=== PATIENT | female | born 1995 | race Caucasian/White ===

== ENCOUNTER 2018-12-25 11:23 | Inpatient (IN) ==
[2018-12-25 11:42] LABS: Hematocrit 39.1 % (37.0-47.0); Hemoglobin 12.9 gm/dL (12.5-16.0); Mean Cell Volume 82.3 fl (78-100); Mean Corpuscular Hemoglobin 27.2 pg (27-31); Mean Platelet Volume 9.8 fl (8-12.5); Neutrophil # 6.1 K/mm3 (1.3-6.0); Neutrophil % 61.7 % (42-75.0); Platelet Count 284 K/mm3 (150-450); Red Blood Count 4.75 M/mm3 (4.2-5.4); Red Cell Distribution Width 13.6 % (11.5-14.0)
[2018-12-25 11:55] LABS: Random Urine Total Protein 14.6 mg/dL (0-12)
[2018-12-25 11:56] LABS: Albumin * 2.8 gm/dl (3.4-5.0); Anion Gap 14.1 mmol/L (6.8-13.8); BUN/Creatinine Ratio 12.5 (9.0-21.6); Bilirubin, Total 0.4 mg/dL (0.0-1.1); Ca. Corrected For Albumin 9.8 mg/dL (8.4-10.2); Calcium * 9.2 mg/dL (7.9-10.9); Carbon Dioxide 24.6 mmol/L (24-32.6); Potassium 3.7 mmol/L (3.4-4.6); Total Protein 7.6 gm/dL (6.2-8.2)
[2018-12-25] MEDS ORDERED: RINGER'S SOLUTION,LACTATED 1,000 ML IV PRN (13:14)
[2018-12-25] MEDS ORDERED: RINGER'S SOLUTION,LACTATED 1,000 ML IV ONE (13:14)
[2018-12-25] MEDS ORDERED: OXYTOCIN/DEXTROSE 5%-WATER 30 UNITS/500 ML BAG IV ONE ×2 (13:14→20:57)
--- NOTE | 2018-12-25 13:17 | HP ---
Chief Complaint - Chief Complaint Date of Service: 12/25/18 Time of Service: 13:17 Chief Complaint: elevated BPs, contractions History of Present Illness: 23 yo at 38 2/7 weeks presents to L&D from office for GHTN and early labor. Patient complains of frequent contractions. Denies TREVINO, visual changes, or epigastric pain. This complicated by anemia, GHTN, and depression. Rh positive Rubella immune GBS negative Medical History (Updated 12/25/18 @ 13:17 by Brendan Forrest DO) Asthma [place] teeth extracted Onset Date: ~2011 Gestational hypertension Onset Date: ~2014 Surgical History: Surgical History (Updated 06/27/18 @ 18:42 by Bud Sutherland DO) History of tonsillectomy and adenoidectomy Onset Date: Unknown as a child History of tympanostomy tube placement Onset Date: Unknown as a child Family History: Family History (Updated 05/02/18 @ 09:35 by Kate Dorsey RN) Father Diabetes Mother Unknown family medical history Grandmother Diabetes maternal Other Alive and well Social History: Preferred Language Guyanese Smoking Status Never smoker (Last Updated 12/25/18 @ 11:21 by Brendan Forrest DO) No Social History Section defined Review Of Systems (GEN) - Review of Systems Generalized/Overall Review: Present: No Symptoms Reported EENTM: Present: No Symptoms Reported Respiratory: Present: No Symptoms Reported Cardiac: Present: No Symptoms Reported Abdominal: Present: Other - contractions - mild Genitourinary: Present: No Symptoms Reported Musculoskeletal: Present: No Symptoms Reported Neurological: Present: No Symptoms Reported Skin: Present: No Symptoms Reported Endocrine: Present: No Symptoms Reported Immunizations: IMMUNIZATION HX Immunizations Up to Date Yes History of Influenza Vaccine No Hx Pneumococcal Vaccination No Allergies/Adverse Reactions: Allergies Allergy/AdvReac Type Severity Reaction Status Date / Time ibuprofen Allergy swelling Verified 12/25/18 10:53 of eyes Home Medications: HOME MEDICATIONS vitamin,calcium,hbsoqoxk-nqse-cepni acid tablet 1 tab PO DAILY 05/02/18 [Last Taken 12/25/18 0700] ascorbic acid (vitamin C) 500 mg capsule 500 mg PO DAILY cap 07/05/18 [Last Taken 12/25/18 0700] cholecalciferol (vitamin D3) 1,000 unit capsule 1,000 unit PO DAILY 07/05/18 [Last Taken 12/25/18 0700] vitamin B complex tablet 1 tab PO DAILY 07/05/18 [Last Taken 12/25/18 07:00] aspirin 81 mg tablet,delayed release 81 mg PO DAILY 10/11/18 [Last Taken 12/25/18 0700] Exam - Exam Vital Signs: Vital Signs - Last Taken Temp 36.5 C 12/25/18 11:33 Pulse 89 12/25/18 11:33 Resp 20 12/25/18 11:33 BP 161/91 H 12/25/18 11:33 Pulse Ox 98 12/25/18 11:33 Repeat BPs 140-150's/80-90's Constitutional: Present: Alert, Oriented x3, Cooperative, No distress ENT Exam: Present: hearing grossly normal Respiratory: Present: lungs clear, no respiratory distress Cardiovascular/Chest: Present: normal peripheral pulses, regular rate, rhythm Abdomen: Present: soft, nontender, other - gravid /Rectal: Present: Other - cervix 4/60/-2 Extremity: Present: no pedal edema, no calf tenderness Skin Exam: Present: normal color, warm/dry, no cyanosis Neurologic: Present: alert, normal mood/affect, oriented x 3, other - DTR 2/4, no clonus Appearance: Present: appropriate appearance, appropriate insight Eye contact: Present: cooperative, good eye contact Thoughts: Present: normal thought pattern, no apparent hallucination Diagnostic Studies: Abnormal Lab Results 12/25/18 12/25/18 12/25/18 Range/Units 11:37 11:37 11:37 Immature Gran # (Auto) 0.04 H (0.000-0.0310) K/mm3 Neutrophils # 6.1 H (1.3-6.0) K/mm3 Anion Gap 14.1 H (6.8-13.8) mmol/L Albumin 2.8 L (3.4-5.0) gm/dl Ur Random Creatinine 57.2 L (60-200) mg/dL U Random Total Protein 14.6 H (0-12) mg/dL U [place] Prot/Creat Ratio 255 H (0-199) mg/gm Laboratory Results WBC 10.0 K/mm3 (4.0-10.5) 12/25/18 11:37 RBC 4.75 M/mm3 (4.2-5.4) 12/25/18 11:37 Hgb 12.9 gm/dL (12.5-16.0) 12/25/18 11:37 Hct 39.1 % (37.0-47.0) 12/25/18 11:37 MCV 82.3 fl (78-100) 12/25/18 11:37 MCH 27.2 pg (27-31) 12/25/18 11:37 MCHC 33.0 g/dl (32-36) 12/25/18 11:37 RDW 13.6 % (11.5-14.0) 12/25/18 11:37 Plt Count 284 K/mm3 (150-450) 12/25/18 11:37 MPV 9.8 fl (8-12.5) 12/25/18 11:37 Immature Gran % (Auto) 0.40 % (0.001-0.429) 12/25/18 11:37 Immature Gran # (Auto) 0.04 K/mm3 (0.000-0.0310) H 12/25/18 11:37 61.7 % (42-75.0) 12/25/18 11:37 26.6 % (20-51) 12/25/18 11:37 8.4 % (0.0-9) 12/25/18 11:37 2.7 % (0.0-3.0) 12/25/18 11:37 0.2 % (0.0-1.0) 12/25/18 11:37 Nucleated RBC % 0.0 k/mm3 (0-1) 12/25/18 11:37 6.1 K/mm3 (1.3-6.0) H 12/25/18 11:37 2.65 k/mm3 (1.5-3.5) 12/25/18 11:37 0.8 k/mm3 (0.0-1.0) 12/25/18 11:37 0.3 k/mm3 (0.0-0.7) 12/25/18 11:37 Absolute Basophils 0.0 k/mm3 (0.0-0.1) 12/25/18 11:37 Sodium 137 mmol/L (132-142) 12/25/18 11:37 137 mmol/L (130-142) 12/25/18 11:37 Potassium 3.7 mmol/L (3.4-4.6) 12/25/18 11:37 Chloride 102 mmol/L (97-106) 12/25/18 11:37 Carbon Dioxide 24.6 mmol/L (24-32.6) 12/25/18 11:37 14.1 mmol/L (6.8-13.8) H 12/25/18 11:37 BUN 8 mg/dL (3-23) 12/25/18 11:37 0.64 mg/dL (0.4-1.4) 12/25/18 11:37 Est GFR (Non-Af Amer) 120 mL/min (60-130) 12/25/18 11:37 12.5 (9.0-21.6) 12/25/18 11:37 77 mg/dL (70-110) 12/25/18 11:37 Calcium 9.2 mg/dL (7.9-10.9) 12/25/18 11:37 Calcium Adj for Albumin 9.8 mg/dL (8.4-10.2) 12/25/18 11:37 0.4 mg/dL (0.0-1.1) 12/25/18 11:37 AST 29 U/L (0-48) 12/25/18 11:37 ALT 43 U/L (19-67) 12/25/18 11:37 144 U/L (50-170) 12/25/18 11:37 7.6 gm/dL (6.2-8.2) 12/25/18 11:37 2.8 gm/dl (3.4-5.0) L 12/25/18 11:37 Ur Random Creatinine 57.2 mg/dL (60-200) L 12/25/18 11:37 U Random Total Protein 14.6 mg/dL (0-12) H 12/25/18 11:37 U [place] Prot/Creat Ratio 255 mg/gm (0-199) H 12/25/18 11:37 Assessment/Plan - Assessment/Plan (1) Gestational hypertension Assessment: Admit for management of labor. Pitocin and Epidural PRN. Problem: Acute Qualifiers: Trimester: third trimester Qualified Code(s): O13.3 - Gestational [-induced] hypertension without significant proteinuria, third trimester (2) Irregular contractions Problem: Acute (3) Depression Problem: Chronic Qualifiers: Depression Type: unspecified Qualified Code(s): F32.9 - Major depressive disorder, single episode, unspecified
--- NOTE | 2018-12-25 13:20 | PN ---
Progess Note - Interim Date: 12/25/18 Time: 13:17 Narrative: 12/25/18 13:17 Patient rating contractions as mild to moderate Blood pressures 809846g/80-90s heart tones reassuring Contractions every 3-4 minutes Cervix 4-5/60/-2, AROM-clear Impression: 38 2/7 week intrauterine in early labor with gestational hypertension Plan: Admit for management of labor/gestational hypertension.
[2018-12-25] MEDS ORDERED: NALOXONE HCL 1 MG/1 ML SYRG IV PRN (16:05)
[2018-12-25] MEDS ORDERED: BUPIVACAINE HCL/0.9 % NACL/PF 250 ML EP PRN (16:05)
[2018-12-25] MEDS ORDERED: ONDANSETRON HCL/PF 2 MG/ML VIAL IV PRN (16:05)
[2018-12-25] MEDS ORDERED: BUPIVACAINE HCL/PF 30 ML VIAL EP SCH (16:15)
--- NOTE | 2018-12-25 16:38 | ANES ---
Anesthesia Pre Procedure Eval Vitals/Labs: Last Vital Signs Temp 36.5 C 12/25/18 11:33 Pulse 89 12/25/18 11:33 Resp 20 12/25/18 11:33 BP 161/91 H 12/25/18 11:33 Pulse Ox 98 12/25/18 11:33 HOME MEDICATIONS vitamin,calcium,bpeqlbje-aajy-wbfza acid tablet 1 tab PO DAILY 05/02/18 [Last Taken 12/25/18 0700] ascorbic acid (vitamin C) 500 mg capsule 500 mg PO DAILY cap 07/05/18 [Last Taken 12/25/18 07] cholecalciferol (vitamin D3) 1,000 unit capsule 1,000 unit PO DAILY 07/05/18 [[place] st Taken 12/25/18699] vitamin B complex tablet 1 tab PO DAILY 07/05/18 [Last Taken 12/25/18 07:00] aspirin 81 mg tablet,delayed release 81 mg PO DAILY 10/11/18 [Last Taken 12/25/18 07] Allergies/Adverse Reactions: Allergies Allergy/AdvReac Type Severity Reaction Status Date / Time ibuprofen Allergy swelling Verified 12/25/18 10:53 of eyes - Planned Procedure Planned Procedure: Labor epidural Medication List Reviewed:: Yes Allergies Verified: Yes Medical History (Updated 12/25/18 @ 13:17 by Brendan Forrest DO) Asthma [place] teeth extracted Onset Date: ~2011 Gestational hypertension Onset Date: ~2014 Surgical History (Updated 06/27/18 @ 18:42 by Bud Sutherland DO) History of tonsillectomy and adenoidectomy Onset Date: Unknown as a child History of tympanostomy tube placement Onset Date: Unknown as a child Family History (Updated 05/02/18 @ 09:35 by Kate Dorsey RN) Father Diabetes Mother Unknown family medical history Grandmother Diabetes maternal Other Alive and well - Anesthesia Assessment and Plan ASA Class: PS, II Anesthesia Type Plan: Epidural
[2018-12-25] MEDS ORDERED: LIDOCAINE HCL/EPINEPHRINE 20 ML VIAL ONE (16:40)
--- NOTE | 2018-12-25 17:05 | ANES ---
Anesthesia Procedure Note Procedure Note: ANESTHESIA PROCEDURE NOTE Date of Procedure: 12/25/2018. Time of procedure: 1640. Performed by: Richar Ornelas CRNA Glass Silverer: None. Preprocedure diagnosis: Active labor. Post procedure diagnosis: Same. Procedure: Insertion of labor epidural. Indications: The patient is a 23 -year-old female in active labor requesting labor epidural for pain management. Findings: See below. Details of the procedure: The patient was placed in a sitting position. DuraPrep as well as Betadine swabs X3 was applied to the patient's back. Patient was then draped in a sterile fashion. Lidocaine 1% was infiltrated to the skin and subcutaneous tissues at the level of the L3-4 interspace. The epidural space was identified using a 18-gauge Tuohy needle with [id number] technique. Epidural catheter was inserted to a depth of 15 centimeters at skin. Negative test dose was elicited using 3 mL of 1.5% preservative-free lidocaine plus epinephrine 1 200,000. The epidural catheter was then taped and secured in place. A loading dose of 8 mL of 0.25% preservative-free bupivacaine was administered to the epidural catheter after negative aspiration for blood and CSF. EBL: Minimal. Fluids: N/A. Specimen: N/A. Post procedure condition: The patient tolerated the procedure well. No complications were noted. Thank you for this consultation. Richar Ornelas CRNA
--- NOTE | 2018-12-25 17:09 | ANES ---
Post Anesthesia Assessment - Vital Signs Vitals: Last Vital Signs Temp 36.7 C 12/25/18 17:07 Pulse 90 12/25/18 17:07 Resp 16 12/25/18 17:07 BP 119/65 12/25/18 17:07 Pulse Ox 97 12/25/18 17:07 Airway Patency: Normal - Mental Status Level Of Consciousness: Awake - N/V Assessment Nausea/Vomiting Presence: None Dehydration:: No
[2018-12-25 18:32] LABS: Cocaine Ur Negative (NEGATIVE); Urine Barbiturate Negative (NEGATIVE); Urine Benzodiazepines Negative (NEGATIVE); Urine Opiates Negative (NEGATIVE); Urine PCP Negative (NEGATIVE); Urine THC Negative (NEGATIVE)
[2018-12-25] MEDS ORDERED: oxyCODONE HCL/ACETAMINOPHEN 1 TAB TABLET PO PRN ×2 (20:57)
[2018-12-25] MEDS ORDERED: ACETAMINOPHEN 325 MG TABLET PO PRN (20:57)
[2018-12-25] MEDS ORDERED: BISACODYL 10 MG SUPP.RECT RC PRN (20:57)
[2018-12-25] MEDS ORDERED: SENNOSIDES 8.6 MG TABLET PO PRN (20:57)
[2018-12-25] MEDS ORDERED: HYDROCORTISONE 30 APPL TUBE TP PRN (20:57)
[2018-12-25] MEDS ORDERED: GLYCERIN/WITCH HAZEL LEAF 40 APPL BOX TP PRN (20:57)
[2018-12-25] MEDS ORDERED: BENZOCAINE/MENTHOL 81 SPRAY CAN TP PRN (20:57)
--- NOTE | 2018-12-25 20:59 | OR ---
Operative Report - Dictated Report Narrative: Spontaneous vaginal delivery of vigorously crying viable female at 2039 on 12/25/2018 with Apgars 9 and 9, weighing 3028 g in OP presentation with meconium-stained fluid. Cord clamping delayed approximately 1 minute Placenta delivered complete, intact, with three vessel cord Estimated blood loss: less than 50 ml Anesthesia: epidural Lacerations: None History for MU Definition: * The number of deliveries resulting in a live the patient experienced prior to current hospitalization * The previous delivery of live twins or any live multiple gestation is considered one live event. *If primagravida or nulliparous is documented select zero for the number of previous live births. Live Events: 1
[2018-12-25] MEDS: DOCUSATE SODIUM 100 MG CAPSULE PO SCH (22:34)
[2018-12-26] MEDS: PRENATAL VITS96/IRON FUM/FOLIC 1 TAB TABLET PO SCH (09:14)
[2018-12-26] MEDS: DOCUSATE SODIUM 100 MG CAPSULE PO SCH ×2 (09:14→21:25)
--- NOTE | 2018-12-26 12:34 | PN ---
Subjective - Date and Time Seen Date: 12/26/18 Time: 12:33 Objective - Vitals Vitals: Last Vital Signs Temp 36.1 C 12/26/18 07:00 Pulse 75 12/26/18 07:00 Resp 16 12/26/18 07:00 BP 133/74 12/26/18 07:00 Pulse Ox 97 12/26/18 07:00 Patient denies complaints. Lochia wnl Abdomen - soft, nontender Uterus - firm, at umbilicus - 1 No calf tenderness Impression: day #1 - s/p spontaneous vaginal delivery. Plan: Continue routine care Cauti Physician Documentation - Urinary Catheter Management Urethral (Najera) Date of Insertion: 12/25/18 Time of Insertion: 17:30 Date of Removal: 12/25/18 Time of Removal: 20:15 Assessment/Plan - Problems/Diagnosis (1) Gestational hypertension Problem: Acute Qualifiers: Trimester: third trimester Qualified Code(s): O13.3 - Gestational [-induced] hypertension without significant proteinuria, third trimester (2) Irregular contractions Problem: Acute (3) Depression Problem: Chronic Qualifiers: Depression Type: unspecified Qualified Code(s): F32.9 - Major depressive disorder, single episode, unspecified
[2018-12-26] MEDS: ACETAMINOPHEN 500 MG TABLET PO PRN ×2 (12:45→21:17)
[2018-12-26] MEDS ORDERED: CALCIUM CARBONATE 500 MG TAB.CHEW PO PRN (22:29)
[2018-12-27 07:48] VITALS: BP 141/79
[2018-12-27] MEDS: DOCUSATE SODIUM 100 MG CAPSULE PO SCH (08:55)
[2018-12-27] MEDS: PRENATAL VITS96/IRON FUM/FOLIC 1 TAB TABLET PO SCH (08:56)
--- NOTE | 2018-12-27 09:05 | PN ---
Subjective - Date and Time Seen Date: 12/27/18 Time: 09:04 Objective - Vitals Vitals: Last Vital Signs Temp 36.4 C 12/27/18 07:44 Pulse 63 12/27/18 07:44 Resp 16 12/27/18 07:44 BP 141/79 H 12/27/18 07:44 Pulse Ox 97 12/27/18 07:44 Patient denies complaints. Lochia wnl Abdomen - soft, nontender Uterus - firm, at umbilicus - 2 No calf tenderness Impression: day #2 - s/p spontaneous vaginal delivery. Mildly elevated blood pressures over the past several hours without symptoms of preeclampsia Plan: Routine discharge instructions. Preeclampsia precautions. Follow-up in the office in 1 week for blood pressure check. Cauti Physician Documentation - Urinary Catheter Management Urethral (Najera) Date of Insertion: 12/25/18 Time of Insertion: 17:30 Date of Removal: 12/25/18 Time of Removal: 20:15 Assessment/Plan - Problems/Diagnosis (1) Gestational hypertension Problem: Acute Qualifiers: Trimester: third trimester Qualified Code(s): O13.3 - Gestational [-induced] hypertension without significant proteinuria, third trimester (2) Irregular contractions Problem: Acute (3) Depression Problem: Chronic Qualifiers: Depression Type: unspecified Qualified Code(s): F32.9 - Major depressive disorder, single episode, unspecified
== END 2018-12-27 11:05 | disposition home or self-care (01) | DRG 807 ==
LOC: OBCLINIC 11:23 → OB 12:29
PROVIDERS: ADMIT Obstetrics & Gynecology; ATTEND Obstetrics & Gynecology
CPT/HCPCS: 36415; 59025; 80053; 80307; 82570; 84155; 84156; 85025; 88307